=== PATIENT | male | born 1980 | race Caucasian/White ===

== ENCOUNTER 2017-02-15 14:39 | Emergency (ER) | payer OTHER ==
[~2017-02-15] VITALS: Wt 81.6 kg
[2017-02-15] MEDS ORDERED: CLONAZEPAM0.5 M2 PO (14:56)
[2017-02-15] MEDS ORDERED: CEPHALEXIN500 M1 PO (15:47)
== END 2017-02-15 15:54 | disposition home or self-care (01) ==
LOC: ED 14:39
DX: S91.202A Unspecified open wound of left great toe with damage to nail, initial encounter (principal); F17.200 Nicotine dependence, unspecified, uncomplicated; W50.0XXA Accidental hit or strike by another person, initial encounter; Y93.72 Activity, wrestling; Y92.89 Other specified places as the place of occurrence of the external cause; Y99.9 Unspecified external cause status